=== PATIENT | female | born 2000 | race Hispanic/Latino ===

== ENCOUNTER 2023-12-26 20:14 | Emergency (ER) | payer MEDICAID ==
[2023-12-26 21:10] LABS: Bilirubin Small (Negative); Blood, Urine Negative (Negative); Clarity Slightly Cloudy (Clear); Glucose, Urine (Dipstick) Negative (Negative); Ketone, Urine Trace mg/dL (Negative); Leukocyte Small (Negative); Nitrite Negative (Negative); Protein, Urine (Dipstick) 30 mg/dL (Neg-Trace); pH, Urine 6.5 (5.0-9.0)
[2023-12-26 21:14] LABS: Pregnancy Test - Urine (BHCG) POSITIVE (Negative); Pregu Control Background? CLEAR/WHITE (CLR/WHITE); Pregu Control Bar Appear? YES (CONTROL BAR)
[2023-12-26 21:20] LABS: Bacteria/HPF 2+ HPF (None Seen); Squamous Epithelial 21-50 HPF (0-3)
[2023-12-26 21:21] LABS: Mucous/LPF Few LPF (<2+)
[2023-12-26] MEDS ORDERED: Cephalexin 500 MG CAP ONE (21:22)
== END 2023-12-26 21:28 | disposition home or self-care (01) ==
LOC: MADERS 20:14
DX: O36.8120 Decreased fetal movements, second trimester, not applicable or unspecified (principal); O23.42 Unspecified infection of urinary tract in pregnancy, second trimester; N39.0 Urinary tract infection, site not specified; Z3A.23 23 weeks gestation of pregnancy
CPT/HCPCS: 81001; 81025; 99284